=== PATIENT | female | born 1965 | race Caucasian/White ===

== ENCOUNTER → 2016-03-02 | Outpatient (CLI) | payer OTHER ==
[~2016-03-02] MED LIST: ABILIFY 5 MG TAB5 MG PO; BENTYL 10 MG CA10 M1 PO; CALCIUM 600 +1 EAC1 PO; CANASA1000 MG RECTAL; CIPRO500 MG PO; CLONAZEPAM 0.50.5 M1 PO; FOSAMAX 70 MG T70 MG PO; HYDROCODON-ACE1 EAC7 PO; LEVSIN-SL0.125 MG PO; LIALDA1.2 GM PO; PREDNISONE 10 M10 MG PO; PREDNISONE 20 M20 MG PO; PROLIA60 MG/1 ML SQ; REMICADE 1100 MG/VIA IV; TRAMADOL 50 MG50 MG PO; TRILEPTAL150 MG PO; TUMS PO; UNICOMPLEX M TA1 TA1 PO; WELLBUTRIN XL150 MG PO
[2016-03-02 12:35] VITALS: BP 111/68
== END ==
LOC: OPONC 02:03
DX: M81.0 Age-related osteoporosis without current pathological fracture (principal); Z79.52 Long term (current) use of systemic steroids
CPT/HCPCS: 95112

== ENCOUNTER 2019-10-27 18:58 | Emergency (ER) | payer OTHER ==
[~2019-10-27] VITALS: Ht 160 cm; Wt 63.5 kg
[~2019-10-27 18:58] MED LIST changes: +ALLEGRA ALLERGY60 MG PO; +BACTRIM DS TAB1 EACH PO; +FLOMAX0.4 MG PO; +NORCO 5-325 TA1 EAC2 PO; +REMICADE 1100 MG/VIA IVPB
[2019-10-27] MEDS ORDERED: NAPROSYN500 MG PO (20:47)
[2019-10-27] MEDS ORDERED: NORCO 5-325 TA1 EAC2 PO (20:47)
[2019-10-27] MEDS ORDERED: SENNA-DOCUSATE1 EAC1 PO (20:47)
[2019-10-27 21:05] VITALS: BP 120/81
== END 2019-10-27 21:00 | disposition home or self-care (01) ==
LOC: ER 18:58
DX: S92.354A Nondisplaced fracture of fifth metatarsal bone, right foot, initial encounter for closed fracture (principal); M81.0 Age-related osteoporosis without current pathological fracture; F32.9 Major depressive disorder, single episode, unspecified; F41.9 Anxiety disorder, unspecified; Z87.442 Personal history of urinary calculi; Z98.51 Tubal ligation status; Z88.8 Allergy status to other drugs, medicaments and biological substances; X50.1XXA Overexertion from prolonged static or awkward postures, initial encounter; Y93.89 Activity, other specified; Y92.89 Other specified places as the place of occurrence of the external cause; Y99.8 Other external cause status